=== PATIENT | male | born 1980 | race Caucasian/White ===

== ENCOUNTER 2019-03-24 16:41 | Emergency (ER) | payer SELFPAY ==
--- NOTE | 2019-03-24 17:20 | ER Document Report ---
ED Medical Screen (RME) - General Chief Complaint: Rash Stated Complaint: RASH Time Seen by Provider: 03/24/19 17:18 Mode of Arrival: Ambulatory Information source: Patient Notes: Patient with pruritic skin rash to buttock area and left side of groin, area is pruritic. Patient was concerned it may be poison suleman I have greeted and performed a rapid initial assessment of this patient. A com prehensive ED assessment and evaluation of the patient, analysis of test results and completion of the medical decision making process will be conducted by additional ED providers. TRAVEL OUTSIDE OF THE [place] IN LAST 30 DAYS: No Past Medical History - Social History Chew tobacco use (# tins/day): No Frequency of alcohol use: None Drug Abuse: None Physical Exam - Vital signs Vitals: Temp Pulse Resp BP Pulse Ox 98.9 F 89 16 136/71 H 97 03/24/19 16:44 03/24/19 16:44 03/24/19 16:44 03/24/19 16:44 03/24/19 16:44 - Skin Skin irregularity: Rash - Pruritic skin rash to left buttock, to right upper buttock and left pubic area Course - Vital Signs Vital signs: Temp Pulse Resp BP Pulse Ox 98.9 F 89 16 136/71 H 97 03/24/19 16:44 03/24/19 16:44 03/24/19 16:44 03/24/19 16:44 03/24/19 16:44
[2019-03-24] MEDS ORDERED: METHYLPREDNISOLONE INJ 125 MG/2 ML SDV IM ONE (19:14)
--- NOTE | 2019-03-24 19:19 | ER Document Report ---
HPI - HPI Time Seen by Provider: 03/24/19 17:18 Pain Level: 2 Notes: Patient is a 39-year-old male no significant past medical history who presents complaining of a rash primarily to his lower back and left waistline that is been present for about 6 days. Patient states that he does work outside and is not aware if he has been exposed to any plants. Denies any insect or tick bite. He has no discomfort or pain with the rash. Patient states that the rash is pruritic. He has not noticed any purulent discharge or streaks. Denies drug allergies. He is able to eat and drink without difficulty. He is urinating normally and having normal bowel movements. No new foods, detergents, soaps, chemicals, or other known exposures. The rash has not been spreading. Denies any headache, fever, URI, sore throat, chest pain, palpitations, syncope, cough, shortness of breath, wheeze, dyspnea, abdominal pain, nausea/vomiting/diarrhea, urinary retention, dysuria, hematuria, loss of control of bowel or bladder, numbness/tingling, muscle paralysis/weakness. - ROS Systems Reviewed and Negative: Yes All other systems reviewed and negative - CONSTITUTIONAL Constitutional: REPORTS: Chills. DENIES: Fever - EENT EENT: DENIES: Sore Throat, Ear Pain, Eye problems - NEURO Neurology: DENIES: Headache, Weakness, Vision blurred, Dizzinesss / Vertigo - CARDIOVASCULAR Cardiovascular: DENIES: Chest pain - RESPIRATORY Respiratory: DENIES: Trouble Breathing, Coughing - GASTROINTESTINAL Gastrointestinal: DENIES: Abdominal Pain, Black / Bloody Stools - URINARY Urinary: DENIES: Dysuria, Urgency, Frequency - REPRODUCTIVE Reproductive: DENIES: : - MUSCULOSKELETAL Musculoskeletal: DENIES: Extremity pain Past Medical History - General Information source: Patient - Social History Smoking Status: Never Smoker Chew tobacco use (# tins/day): No Frequency of alcohol use: None Drug Abuse: None Family History: Reviewed & Not Pertinent Patient has suicidal ideation: No Patient has homicidal ideation: No - Past Medical History Cardiac Medical History: Reports: Hx Hypercholesterolemia Pulmonary Medical History: Reports: Hx Asthma Vertical Provider Document - CONSTITUTIONAL Agree With Documented VS: Yes Notes: PHYSICAL EXAMINATION: GENERAL: Well-appearing, well-nourished and in no acute distress. HEAD: Atraumatic, normocephalic. EYES: Pupils equal round and reactive to light, extraocular movements intact, sclera anicteric, conjunctiva are normal. ENT: Nares patent and without discharge. oropharynx clear without exudates. No tonsilar hypertrophy or erythema. Moist mucous membranes. No sinus tenderness. NECK: Normal range of motion, supple without lymphadenopathy LUNGS: Breath sounds clear to auscultation bilaterally and equal. No wheezes rales or rhonchi. HEART: Regular rate and rhythm without murmurs, rubs, gallops. ABDOMEN: Soft, nontender, nondistended abdomen. No guarding, no rebound. No masses appreciated. Normal bowel sounds present. No CVA tenderness bilaterally. Musculoskeletal: FROM to passive/active. Strength 5+/5. Extremities: No cyanosis, clubbing, or edema b/l. Peripheral pulses 2+. Capillary refill less than 3 seconds. NEUROLOGICAL: Cranial nerves grossly intact. Normal speech, normal gait. Normal sensory, motor exams PSYCH: Normal mood, normal affect. SKIN: Macular erythematous, blanching rash noted to the lower back area waistline that does cross the midline and encompasses some of the right side as well. There is no induration, fluctuance, streaks, purulence. Nontender to palpation throughout. No vesicles or blisters noted. No satellite lesions. The area does appear most similar to hives. No erythema migrans. - INFECTION CONTROL TRAVEL OUTSIDE OF THE [place] IN LAST 30 DAYS: No Course - Re-evaluation Re-evalutation: 03/24/19 19:19 Patient is an afebrile, well-hydrated, 39-year-old male who presents with a nonspecific skin rash, suspect allergic reaction/histamine reaction and hives. Vitals are acceptable without significant tachycardia, tachypnea, or hypoxia. PE is otherwise unremarkable. Patient is nontoxic-appearing and is tolerating p.o. without difficulty. Low suspicion for any necrotizing fasciitis, SJS, SSS, drug reaction, sepsis, meningitis, syphilis, Lyme disease, [place] spotted fever, or other systemic emergent condition at this time. Patient aware that condition can change from initial presentation and he needs to monitor symptoms closely and seek medical attention with any acute changes. Recheck with your PCM in 2 to 3 days. Consider consult with dermatology. Return to the ED with any other worsening/concerning symptoms as reviewed. Patient is in agreement. - Vital Signs Vital signs: Temp Pulse Resp BP Pulse Ox 98.9 F 89 16 136/71 H 97 03/24/19 16:44 03/24/19 16:44 03/24/19 16:44 03/24/19 16:44 03/24/19 16:44 Discharge - Discharge Clinical Impression: Rash and nonspecific skin eruption Condition: Stable Disposition: HOME, SELF-CARE Additional Instructions: Keep the skin clean Wash with soap and water Tylenol/ibuprofen if needed Benadryl/Pepcid as reviewed Antifungal cream [id number] as needed Take medication as directed Monitor for any worsening symptoms Recheck with your PCM in 2-3 days Consider consult with Dermatology for ongoing/worsening symptoms Return to the ED with any worsening symptoms and/or development of fever, headache, chest pain, palpitations, syncope, shortness of breath, trouble breathing, abdominal pain, n/v/d, abscess, purulent discharge, red streaks, worsening swelling, or other worsening symptoms that are concerning to you. Prescriptions: Prednisone [Deltasone 10 mg Tablet] 10 mg PO DAILY #18 tablet Forms: Elevated Blood Pressure Referrals: GAIL DIGGS DO [ACTIVE STAFF] - Follow up as needed [facility] [Provider Group] - Follow up as needed
[2019-03-24 19:44] VITALS: BP 122/80
== END 2019-03-24 19:49 | disposition home or self-care (01) ==
LOC: ER 16:41
DX: R21 Rash and other nonspecific skin eruption (principal); R68.83 Chills (without fever)
CPT/HCPCS: 99283; 96372; 82962; J2930

== ENCOUNTER 2019-06-25 18:47 | Emergency (ER) | payer SELFPAY ==
[2019-06-25] MEDS ORDERED: DIPHENHYDRAMINE HCL 50 MG/ML VIAL IV ONE ×2 (19:16→22:30)
[2019-06-25] MEDS ORDERED: PROCHLORPERAZINE EDISYLATE INJ 10 MG/2 ML VIAL IV ONE ×2 (19:16→22:30)
[2019-06-25] MEDS ORDERED: KETOROLAC TROMETHAMINE INJ/PF 30 MG/1 ML SDV IV ONE ×2 (19:16→22:30)
--- NOTE | 2019-06-25 19:16 | ER Document Report ---
ED Medical Screen (RME) - General Chief Complaint: Headache Stated Complaint: HEADACHE Time Seen by Provider: 06/25/19 19:11 TRAVEL OUTSIDE OF THE [place] IN LAST 30 DAYS: No - HPI Notes: 06/25/19 19:14 Patient is a 39-year-old male with a history of cluster headaches who presents complaining of a headache for the past 4 days that is not responding to his zehm-ssu-wqubuev medicines. Patient states that he has sensitivity to the scalp on the left side. This is not the worst headache of his life and did not start as a thunderclap. Pain does not radiate otherwise. He is able to eat and drink, but does have decreased p.o. intake. He is urinating normally and having normal bowel movements. Denies drug allergies. He is not on any blood thinning medications. No injury. Denies fever, neck pain, URI, chest pain, shortness of breath, vomiting/diarrhea, paralysis/weakness, numbness/tingling. I have treated and performed a rapid initial assessment of this patient. A comprehensive ED assessment and evaluation of the patient, analysis of test results and completion of medical decision making process will be conducted by additional ED providers. PHYSICAL EXAMINATION: GENERAL: Well-appearing, well-nourished and in no acute distress. A&Ox4. Answers questions appropriately. HEAD: Atraumatic, normocephalic. + mild tenderness to palp left scalp. EYES: Pupils equal round and reactive to light, extraocular movements intact, sclera anicteric, conjunctiva are normal. No nystagmus. ENT: Nares patent and without discharge. oropharynx clear without exudates. No tonsilar hypertrophy or erythema. Moist mucous membranes. NECK: Normal range of motion, supple without lymphadenopathy. No rigidity/meningismus. No midline tenderness. LUNGS: Breath sounds clear to auscultation bilaterally and equal. No wheezes rales or rhonchi. HEART: Regular rate and rhythm without murmurs, rubs, gallops. Musculoskeletal: Ext b/l: FROM to passive/active. Strength 5+/5. No deficits noted. No bony tenderness of extremities. Extremities: No cyanosis, clubbing, or edema b/l. Peripheral pulses 2+. Capillary refill less than 2 seconds. NEUROLOGICAL: NIH 0. GCS 15. Cranial nerves grossly intact. Normal speech, normal gait. Normal sensory, motor exams. PSYCH: Normal mood, normal affect. SKIN: Warm, Dry, normal turgor, no rashes or lesions noted. - Related Data Allergies/Adverse Reactions: No Known Allergies Allergy (Verified 03/24/19 18:54) Past Medical History - Past Medical History Cardiac Medical History: Reports: Hx Hypercholesterolemia Pulmonary Medical History: Reports: Hx Asthma Physical Exam - Vital signs Vitals: Temp Pulse Resp BP Pulse Ox 99.6 F 89 19 148/84 H 97 06/25/19 19:10 06/25/19 19:10 06/25/19 19:10 06/25/19 19:10 06/25/19 19:10 Course - Vital Signs Vital signs: Temp Pulse Resp BP Pulse Ox 99.6 F 89 19 148/84 H 97 06/25/19 19:10 06/25/19 19:10 06/25/19 19:10 06/25/19 19:10 06/25/19 19:10
[2019-06-25] MEDS ORDERED: NORMAL SALINE 500 ML IV ONE ×2 (19:17→22:30)
--- NOTE | 2019-06-25 22:23 | ER Document Report ---
ED Headache - General Chief Complaint: Headache Stated Complaint: HEADACHE Time Seen by Provider: 06/25/19 19:11 Mode of Arrival: Ambulatory Information source: Patient Notes: 89-year-old male presents to the emergency department complaining of headaches. He states that he has a history of headaches for the past 6 years. He states that this headache is been ongoing for the past 3 days and he has tried his usual znhe-izq-xeygogh medications at home without any success. He has taken ibuprofen and Benadryl and has had no improvement in his symptoms. He describes a very sharp headache extending across the upper septal scalp and onto the forehead. TRAVEL OUTSIDE OF THE [place] IN LAST 30 DAYS: No - Related Data Allergies/Adverse Reactions: No Known Allergies Allergy (Verified 03/24/19 18:54) Past Medical History - Social History Smoking Status: Never Smoker Chew tobacco use (# tins/day): No Frequency of alcohol use: Occasional Drug Abuse: None Family History: Reviewed & Not Pertinent Patient has suicidal ideation: No Patient has homicidal ideation: No - Past Medical History Cardiac Medical History: Reports: Hx Hypercholesterolemia Pulmonary Medical History: Reports: Hx Asthma Psychiatric Medical History: Reports: Hx Depression Review of Systems - Review of Systems Notes: Constitutional: Negative for fever. HENT: Negative for sore throat. Eyes: Negative for visual changes. Cardiovascular: Negative for chest pain. Respiratory: Negative for shortness of breath. Gastrointestinal: Negative for abdominal pain, vomiting or diarrhea. Genitourinary: Negative for dysuria. Musculoskeletal: Negative for back pain. Skin: Negative for rash. Neurological:+ headaches, no weakness or numbness. 10 point ROS negative except as marked above and in HPI. Physical Exam - Vital signs Vitals: Temp Pulse Resp BP Pulse Ox 99.6 F 89 19 148/84 H 97 06/25/19 19:10 06/25/19 19:10 06/25/19 19:10 06/25/19 19:10 06/25/19 19:10 - Notes Notes: PHYSICAL EXAMINATION: Physical Exam: General: Well-nourished well-developed in no acute distress HEENT: NC/AT, pupils equal round and reactive to light, MM moist,nares clear, Neck: supple, no adenopathy, no masses. Lungs: clear, no wheezing, no rales no rhonchi CVS: Regular rate and rhythm no murmur gallop or rub Abdomen: Soft active nontender, no masses, no hepatosplenomegaly Ext: No edema clubbing or cyanosis. Neuro: Alert and responsive, moving all 4 extremities on command, cranial nerves intact. Skin: Intact no open lesions, no rash PSYCH: Normal mood, normal affect. Course - Re-evaluation Re-evalutation: 06/25/19 23:56 Patient was given a headache cocktail which included Toradol, Benadryl, and Compazine. He states that his symptoms have improved significantly and that he is ready to go home. I have asked the patient to follow-up with a physician regarding his headaches and the treatment plan in the interim he might try Excedrin or caffeine as a solution for flareups. - Vital Signs Vital signs: Temp Pulse Resp BP Pulse Ox 98.1 F 82 15 135/83 H 96 06/25/19 23:34 06/25/19 23:34 06/25/19 23:34 06/25/19 23:34 06/25/19 23:34 Discharge - Discharge Clinical Impression: Headache Qualifiers: Headache type: unspecified Headache chronicity pattern: acute headache Intractability: not intractable Qualified Code(s): R51 - Headache Disposition: HOME, SELF-CARE Instructions: Intravenous Compazine for Headaches ([facility]), Use of Diphenhydramine, Headache ([facility]), Toradol Injection ([facility]) Additional Instructions: You have been seen in the Emergency Department (ED) for a headache. Please use Tylenol (acetaminophen) or Motrin (ibuprofen) or Excedrin to try as needed for symptoms, but only as written on the box. As we have discussed, please follow up with your primary care doctor as soon as possible regarding today's ED visit and your headache symptoms. Call your doctor or return to the ED if you have a worsening headache, sudden and severe headache, confusion, slurred speech, facial droop, weakness or numbness in any arm or leg, extreme fatigue, or other symptoms that concern you.
[2019-06-26 00:32] VITALS: BP 131/79
== END 2019-06-26 00:10 | disposition home or self-care (01) ==
LOC: ER 18:47
DX: R51 Headache (principal); Z79.899 Other long term (current) drug therapy
CPT/HCPCS: 99283; 96361; 96374; 96375; J1200; J1885; J0780; J7040

== ENCOUNTER 2019-08-28 19:56 | Emergency (ER) | payer SELFPAY ==
[2019-08-28 20:13] VITALS: BP 135/87
== END 2019-08-28 20:20 | disposition left against medical advice (07) ==
LOC: ER 19:56
DX: Z53.21 Procedure and treatment not carried out due to patient leaving prior to being seen by health care provider (principal)

== ENCOUNTER 2019-08-29 13:25 | Emergency (ER) | payer SELFPAY ==
[2019-08-29 13:37] VITALS: BP 122/76
[2019-08-29] MEDS ORDERED: ONDANSETRON 4 MG TAB.RAPDIS PO ONE (13:41)
--- NOTE | 2019-08-29 13:43 | ER Document Report ---
HPI - HPI Time Seen by Provider: 08/29/19 13:38 Notes: CHIEF COMPLAINT: Cough for 2 days HPI: 39-year-old male presenting to the emergency department complaining of cough for 2 days, had an episode of vomiting today after coughing. No definitive fevers. Does complain of body ache and chills. ROS: See HPI - all other systems were reviewed and are otherwise negative Constitutional: no fever Eyes: no drainage, no blurred vision ENT: no runny nose, no sore throat Cardiovascular: no chest pain Resp: no SOB, positive cough GI: Positive posttussive vomiting, no diarrhea, no abdominal pain : no dysuria Integumentary: no rash Allergy: no hives Musculoskeletal: no extremity pain or swelling Neurological: no numbness/tingling, no weakness MEDICATIONS: I agree with the patient medications as charted by the RN. ALLERGIES: I agree with the allergies as charted by the RN. PAST MEDICAL HISTORY/PAST SURGICAL HISTORY: Reviewed and agree as charted by RN. SOCIAL HISTORY: Reviewed and agree as charted by RN. FAMILY HISTORY: No significant familial comorbid conditions directly related to patient complaint EXAM: Reviewed vital signs as charted by RN. CONSTITUTIONAL: Alert and oriented and responds appropriately to questions. Well-appearing; well-nourished, mild distress secondary to discomfort HEAD: Normocephalic; atraumatic EYES: PERRL; Conjunctivae clear, sclerae non-icteric ENT: normal nose; positive clear rhinorrhea; moist mucous membranes; pharynx without lesions noted, no uvula edema or deviation, no tonsillar hypertrophy, phonation normal NECK: Supple without meningismus; non-tender; no cervical lymphadenopathy, no masses CARD: RRR; no murmurs, no clicks, no rubs, no gallops; symmetric distal pulses RESP: Normal chest excursion without splinting or tachypnea; breath sounds clear and equal bilaterally; no wheezes, no rhonchi, no rales, pulse oximetry 98% on room air not hypoxic ABD/GI: Normal bowel sounds; non-distended; soft, non-tender, no rebound, no guarding; no palpable organomegaly or masses. BACK: The back appears normal and is non-tender to palpation, there is no CVA tenderness EXT: Normal ROM in all joints; non-tender to palpation; no cyanosis, no effusions, no edema SKIN: Normal color for age and race; warm; dry; good turgor; no acute lesions noted NEURO: Moves all extremities equally; Motor and sensory function intact PSYCH: The patient's mood and manner are appropriate. Grooming and personal hygiene are appropriate. MDM: 39-year-old male with 2 days of coughing with one episode of posttussive vomiting. This is likely a viral etiology. Will obtain a chest x-ray to evaluate for infiltrate. Will obtain flu swab - REPRODUCTIVE Reproductive: DENIES: : Past Medical History - Social History Smoking Status: Unknown if Ever Smoked Family History: Reviewed & Not Pertinent - Past Medical History Cardiac Medical History: Reports: Hx Hypercholesterolemia Pulmonary Medical History: Reports: Hx Asthma Psychiatric Medical History: Reports: Hx Depression Vertical Provider Document - INFECTION CONTROL TRAVEL OUTSIDE OF THE [place] IN LAST 30 DAYS: No Course - Re-evaluation Re-evalutation: 08/29/19 14:51 Chest x-ray shows left lower lobe pneumonia. Will start Rocephin and Zithromax in the ER, patient is otherwise stable will be able to be discharged home on antibiotics, inhaler, PCP follow-up - Vital Signs Vital signs: Temp Pulse Resp BP Pulse Ox 99 F 96 18 122/76 98 08/29/19 13:37 08/29/19 13:37 08/29/19 13:37 08/29/19 13:37 08/29/19 13:37 Discharge - Discharge Clinical Impression: Pneumonia Qualifiers: Pneumonia type: due to unspecified organism Laterality: left Lung location: lower lobe of lung Qualified Code(s): J18.9 - Pneumonia, unspecified organism Condition: Stable Disposition: HOME, SELF-CARE Instructions: Pneumonia ([facility]) Additional Instructions: 1. take the medications as prescribed 2. if you were prescribed an Albuterol inhaler, use it as instructed, 2 puffs every 4 hours as needed for cough/wheezing 3. call your primary care provider as soon as possible to schedule recheck appt. in the office. 4. return to the ED for any worsening condition, shortness of breath or continued fever that does not resolve with Motrin/Tylenol Prescriptions: Guaifenesin/Dextromethorphan [Mucinex Dm ER 600-30 mg Tablet] 1 each PO BID #20 tab.er.12h Albuterol Sulfate [Proair HFA Inhalation Aerosol 8.5 gm MDI] 2 puff IH Q4H PRN #1 mdi PRN Reason: Azithromycin [Zithromax 250 mg Tablet] 250 mg PO ASDIR PRN #6 tablet PRN Reason: Forms: Return to Work Referrals: [facility] [Primary Care Provider] - Follow up as needed
[2019-08-29 14:13] LABS: A TYPE INFLUENZA AG NEGATIVE (NEGATIVE); B INFLUENZA AG NEGATIVE (NEGATIVE)
--- NOTE | 2019-08-29 14:21 | RADIOLOGY REPORT (SQ) ---
EXAM DESCRIPTION: CHEST 2 VIEWS COMPLETED DATE/TIME: 08/29/2019 1:57 pm REASON FOR STUDY: cough COMPARISON: None. NUMBER OF VIEWS: Two view. TECHNIQUE: Frontal and lateral radiographic views of the chest acquired. LIMITATIONS: None. FINDINGS: LUNGS AND PLEURA: Low lung volumes. Left lower lobe airspace disease consistent with pneu monia. No pleural fluid or pneumothorax. MEDIASTINUM AND HILAR STRUCTURES: No masses. No contour abnormalities. HEART AND VASCULAR STRUCTURES: Heart normal in size and contour. No evidence for failure. BONES: No acute findings. HARDWARE: None in the chest. OTHER: No other significant finding. IMPRESSION: Left lower lobe pneumonia. TECHNICAL DOCUMENTATION: JOB ID: [id number] [employer]- All Rights Reserved Reading location - IP/workstation name: [email or web address]
[2019-08-29] MEDS ORDERED: AZITHROMYCIN 250 MG TABLET PO ONE (14:33)
[2019-08-29] MEDS ORDERED: CEFTRIAXONE INJ 1000 MG VIAL IM ONE (14:33)
[2019-08-29] MEDS ORDERED: LIDOCAINE 1% INJ-PF (10 MG/ML) 30 ML SDV ONE (15:27)
== END 2019-08-29 15:47 | disposition home or self-care (01) ==
LOC: ER 13:25
DX: J18.9 Pneumonia, unspecified organism (principal); J45.909 Unspecified asthma, uncomplicated; R05 Cough; R11.10 Vomiting, unspecified; R68.83 Chills (without fever); J34.89 Other specified disorders of nose and nasal sinuses
CPT/HCPCS: 99283; 96372; 87804; 71046; S0119; J3490; J0696

== ENCOUNTER 2020-02-25 23:45 | Emergency (ER) | payer SELFPAY ==
[2020-02-26 00:07] VITALS: BP 121/76
== END 2020-02-26 01:29 | disposition left against medical advice (07) ==
LOC: ER 23:45
DX: Z53.21 Procedure and treatment not carried out due to patient leaving prior to being seen by health care provider (principal)